=== PATIENT | female | born 1995 | race Caucasian/White ===

== ENCOUNTER → 2024-02-05 13:53 | Outpatient (CLI) | payer OTHER, SELFPAY ==
[2024-02-05 16:16] LABS: Urine N gonorrhoeae NOT DETECTED
[2024-02-05 16:24] LABS: Urine Chlamydia NOT DETECTED
== END ==
PROVIDERS: Visit Provider Nurse Practitioner Family
DX: R30.0 Dysuria (principal)
CPT/HCPCS: 87086; 87491; 87591